=== PATIENT | female | born 1955 | race Caucasian/White ===

== ENCOUNTER → 2016-09-15 | Outpatient (CLI) | payer BC ==
[~2016-09-15] MED LIST: ACET-1256 PO; CALCOIN3; CHOL100010 PO; FLUO20CA35 PO; HYDRELX3 PO; IMD/2 PO; LEVA0.63 INH; LEVO75TA PO; LIDO5DIS10 TD; LPT/40 PO; MODA1TAB PO; MOME50SP5; MONT1TAB3 PO; MULTCHW PO; PSYL55.43 PO; RIZA10TA18 PO; SALI0.6510 NAE; SYMIN/8045 INH; TOPI50TA24 PO; VNTHFA/IN INH; [UNRECOGNIZED DRUG - CODE] EX
== END | disposition home or self-care (01) ==
LOC: C.CPL 10:36
PROVIDERS: ATTEND Psychiatry & Neurology Psychiatry
DX: F33.1 Major depressive disorder, recurrent, moderate (principal); Z79.899 Other long term (current) drug therapy

== ENCOUNTER → 2016-12-21 | Outpatient (CLI) | payer BC ==
[~2016-12-21] MED LIST changes: +AMPH10CA3 PO; +AMPH1TAB58 PO; +BIOTCAP2 PO; +CHOL1TAB42 PO; +HYDR2.5C37 TOP; +LEVA45AE INH; +NF656 TOP; +PRED10TA PO; +RISE150T PO; +TOPI100T20 PO; +XOPENEX NEBULIZER INH
--- NOTE | 2016-12-22 14:10 | MAMMOGRAPHY REPORT ---
BILATERAL DIGITAL SCREENING MAMMOGRAM TOMOSYNTHESIS WITH CAD: 12/21/2016 CLINICAL HISTORY: Routine screening. Patient has no complaints. TECHNIQUE: Breast tomosynthesis in addition to standard 2D mammography was performed. Current study was also evaluated with a Computer Aided Detection (CAD) system. COMPARISON: Comparison is made to exams dated: 12/18/2015 mammogram, 03/07/2013 mammogram, 03/06/2012 mammogram, 03/04/2011 mammogram, 03/03/2010 mammogram - [facility], and 02/26/2009. BREAST COMPOSITION: There are scattered areas of fibroglandular density in both breasts. FINDINGS: The parenchymal pattern is unchanged. No developing mass, architectural distortion or clu ster of suspicious microcalcifications is seen in either breast. IMPRESSION: ACR BI-RADS CATEGORY 2: BENIGN There is no mammographic evidence of malignancy. A 1 year screening mammogram is recommended. The p atient will receive written notification of the results. Approximately 10% of breast cancers are not detected with mammography. A negative mammographic repor t should not delay biopsy if a clinically suggestive mass is present. Manuela Nielsen M.D. ay/:12/21/2016 16:34:32 Java Web Architect: Cheyenne FREIRE([place]aldon[place])(M), [facility] letter sent: Normal 1/2 BI-RADS Code: ACR BI-RADS Category 2: Benign
== END | disposition home or self-care (01) ==
LOC: C.MAMM 09:39
PROVIDERS: ATTEND Obstetrics & Gynecology
DX: Z12.31 Encounter for screening mammogram for malignant neoplasm of breast (principal)

== ENCOUNTER → 2017-04-07 | Outpatient (CLI) | payer BC ==
[~2017-04-07] MED LIST changes: -AMPH10CA3 PO; -AMPH1TAB58 PO; -BIOTCAP2 PO; -CHOL1TAB42 PO; -HYDR2.5C37 TOP; -LEVA45AE INH; -NF656 TOP; -PRED10TA PO; -RISE150T PO; -TOPI100T20 PO; -XOPENEX NEBULIZER INH
[2017-04-07 13:52] LABS: ESTIMATED AVERAGE GLUCOSE 123 mg/dl; HA1C FLAG Normal (Normal)
[2017-04-07 14:06] LABS: CHOLESTEROL/HDL RATIO 4.5; THYROID STIMULATING HORMONE 0.59 uIu/ml (0.300-4.500)
== END | disposition home or self-care (01) ==
LOC: C.LABBC 10:20
PROVIDERS: ATTEND Internal Medicine
DX: E78.5 Hyperlipidemia, unspecified (principal)

== ENCOUNTER → 2017-06-06 | Day surgery (SDC) | payer BC ==
[2017-05-24 13:14] VITALS: Ht 160 cm; Wt 61.4 kg
[~2017-06-06] VITALS: Ht 160 cm; Wt 61.4 kg
[~2017-06-06] MED LIST changes: +AMPH10CA3 PO; +AMPH1TAB58 PO; +BIOTCAP2 PO; -CALCOIN3; -CHOL100010 PO; +CHOL1TAB42 PO; -FLUO20CA35 PO; +HYDR2.5C37 TOP; -LEVA0.63 INH; +LEVA45AE INH; -LIDO5DIS10 TD; +LIDOCAINE HCL 2% 2 ML VIAL (20MG/ML) ONE; -LPT/40 PO; +MIDAZOLAM HCL 1 MG/ML 2ML VIAL ONE; -MODA1TAB PO; -MOME50SP5; +NF656 TOP; +ONDANSETRON INJ 2 MG/ML 2 ML VIAL ONE; +PRED10TA PO; +PROPOFOL IV EMULSION 10 MG/ML 20 ML VIAL IV ONE; -PSYL55.43 PO; +RISE150T PO; +SODIUM CHLORIDE 0.9% 500ML 500 ML IV ONE; +TOPI100T20 PO; -VNTHFA/IN INH; +XOPENEX NEBULIZER INH; -[UNRECOGNIZED DRUG - CODE] EX
--- NOTE | 2017-06-06 14:02 | Endo History and Physical ---
History & Physical Date of Service: Jun 06, 2017. Chief Complaint: HX OF POLYPS Referring Physician: DR. Sandy GOMEZ History of Present Illness 61 yo CF who presents for colonoscopy secondary to history of colon polyps. Past Surgical History Hx Cardiac Surgery: No Hx Internal Defibrillator: No Hx Pacemaker: No Hx Abdominal Surgery: No ( ) Hx of Implantable Prosthesis: No Hx Post-Op Nausea and Vomiting: Yes (N/V WITH LUNG BIOPSY) Hx Cancer Surgery: No Hx Thoracic Surgery: Yes (RIGHT OPEN LUNG BIOPSY-BENIGN; ASPIRATION OF BREAST CYST-BENIGN) Hx Orthopedic: No Hx Urinary Tract Surgery: No Family History IBD Social History Smoking Status: Current Every Day Smoker Hx Substance Use: Yes (LORTAB PRN PAIN) Hx Alcohol Use: Yes (ONCE A WEEK) Allergies Coded Allergies: Adhesives (Verified Allergy, Unknown, BLISTERS AND ITCHING, 05/24/17) Bacitracin (Verified Allergy, Unknown, ITCHING AND BLISTERS, 05/24/17) MAY BE FROM ADHESIVE Neomycin (Verified Allergy, Unknown, ., 05/24/17) Penicillins (Verified Allergy, Unknown, RASH AND ITCHING, 05/24/17) Polymyxin B (Verified Allergy, Unknown, ., 05/24/17) Sulfa Drugs (Verified Allergy, Unknown, RASH AND ITCHING, 05/24/17) Clarithromycin (Verified Adverse Reaction, Unknown, N/V, 05/24/17) Doxycycline (Verified Adverse Reaction, Unknown, N/V, 05/24/17) Current Medications Reported Home Medications Medications Dose Route/Sig Max Daily Dose Days Date Category Dose Instructions Symbicort 80/4.5 Inhaler (Budesonide/Formoterol Fumarate) Aero 1 Puffs INH BID PRN 06/06/17 Reported Prednisone 10 Mg Tab 10 Mg PO TAPER 06/06/17 Reported Lidoderm Patch 5% (Lidocaine) 1 Ea Tdsy 1 Dose TOP DAILY 05/24/17 Reported [Xopenex Nebulizer] 1 Dose INH PRN 05/24/17 Reported 0.63 MG/3 ML Anusol-Hc 2.5% (Hydrocortisone 2.5% (Rectal)) 2.5 % Cre 1 Appln TOP BID PRN 7 05/24/17 Reported Adderall 5MG (Amphetamine-Dextroamphetamine 5MG) 1 Tab Tab 5 Mg PO NOON 05/24/17 Reported Adderall Xr 10MG (Amphetamine-Dextroamphetamine 10MG) 1 Cap Cap 10 Mg PO QAM 05/24/17 Reported Actonel (Risedronate Sodium) 150 Mg Tab 1 Tab PO MONTHLY 90 05/24/17 Reported FIRST OF THE MONTH Biotin 5000 (Biotin) 5 Mg Cap 5 Mg PO QPM 05/24/17 Reported [Lortab] 1 Tab PO PRN 05/24/17 Reported 10-325 MG Topamax (Topiramate) 100 Mg Tab 100 Mg PO HS 05/24/17 Reported Vitamin D (Cholecalciferol) 5,000 Unit Tab 5,000 Units PO QPM 05/24/17 Reported Levalbuterol Tartrate Hfa (Levalbuterol Tartrate) 45 Mcg/Act Aer 2 Puffs INH PRN 05/24/17 Reported Tylenol (Acetaminophen) 500 Mg Tab 1,000 Mg PO Q4 PRN 09/25/13 Reported [place] Nasal [place] (Saline) 0.65 % Spr 1 [place] KWAKU BID PRN 09/25/13 Reported Maxalt (Rizatriptan Benzoate) 10 Mg Tab 10 Mg PO UD 09/25/13 Reported TAKE 1 TABLET AT ONSET OF HEADACHE. MAY REPEAT EVERY 2 HOURS NEEDED. MAXIMUM 3 TABLETS IN 24 HOURS. Imodium (Loperamide HCl) 2 Mg Cap 2-4 Mg PO PRN PRN 09/25/13 Reported Centrum Silver (Multiple Vitamins W/ Minerals) 1 Chw Chw 1 Tab PO HS 09/25/13 Reported Topamax (Topiramate) 50 Mg Tab 50 Mg PO QAM 10/24/12 Reported Singulair (Montelukast Sodium) 10 Mg Tab 10 Mg PO QPM 10/24/12 Reported Synthroid (Levothyroxine Sodium) 75 Mcg Tab 75 Mcg PO QAM 10/24/12 Reported Vital Signs Weight (Kilograms): 61.36 Height (Feet): 5 Height (Inches): 3 Date Time Temp Pulse Resp B/P (MAP) Pulse Ox O2 Delivery O2 Flow Rate FiO2 06/06/17 13:57 36.7 81 16 113/61 (78) 100 Room Air Physical Exam General Appearance: WD/WN, no apparent distress Respiratory/Chest: Auscultation: breath sounds normal Cardiovascular: Heart Auscultation: RRR Abdomen: Bowel Sounds: normal Inspection & Palpation: soft, non-distended, no tenderness, guarding & rebound Assessment and Plan Assessment: 61 yo CF who presents for colonoscopy secondary to history of colon polyps. Plan: Proceed with colonoscopy.
--- NOTE | 2017-06-06 15:17 | Discharge Instructions ---
Endoscopy Patient Instructions Date / Procedure(s) Performed Jun 06, 2017. Colonoscopy Allergy Information Coded Allergies: Bacitracin (Verified Allergy, Intermediate, ITCHING AND BLISTERS, 06/06/17 ) MAY BE FROM ADHESIVE Neomycin (Verified Allergy, Intermediate, ITCHING AND BLISTERS, 06/06/17) MAY BE FROM ADHESIVE Penicillins (Verified Allergy, Intermediate, RASH AND ITCHING, 06/06/17) Polymyxin B (Verified Allergy, Intermediate, ITCHING AND BLISTERS, ) MAY BE FROM ADHESIVE Sulfa Antibiotics (Verified Allergy, Unknown, RASH AND ITCHING, 06/06/17) Adhesives (Verified Adverse Reaction, Intermediate, BLISTERS AND ITCHING, 06/06/17) Clarithromycin (Verified Adverse Reaction, Intermediate, N/V, 06/06/17) Doxycycline (Verified Adverse Reaction, Intermediate, N/V, 06/06/17) Discharge Date / Findings Jun 06, 2017. Colon polyps Diverticulosis Internal hemorrhoids Medication Instructions OK to resume all medications today as prescribed Reported Home Medications Medications Dose Route/Sig Max Daily Dose Days Date Category Dose Instructions Symbicort 80/4.5 Inhaler (Budesonide/Formoterol Fumarate) Aero 1 Puffs INH BID PRN 06/06/17 Reported Prednisone 10 Mg Tab 10 Mg PO TAPER 06/06/17 Reported Lidoderm Patch 5% (Lidocaine) 1 Ea Tdsy 1 Dose TOP DAILY 05/24/17 Reported [Xopenex Nebulizer] 1 Dose INH PRN 05/24/17 Reported 0.63 MG/3 ML Anusol-Hc 2.5% (Hydrocortisone 2.5% (Rectal)) 2.5 % Cre 1 Appln TOP BID PRN 7 05/24/17 Reported Adderall 5MG (Amphetamine-Dextroamphetamine 5MG) 1 Tab Tab 5 Mg PO NOON 05/24/17 Reported Adderall Xr 10MG (Amphetamine-Dextroamphetamine 10MG) 1 Cap Cap 10 Mg PO QAM 05/24/17 Reported Actonel (Risedronate Sodium) 150 Mg Tab 1 Tab PO MONTHLY 90 05/24/17 Reported FIRST OF THE MONTH Biotin 5000 (Biotin) 5 Mg Cap 5 Mg PO QPM 05/24/17 Reported [Lortab] 1 Tab PO PRN 05/24/17 Reported 10-325 MG Topamax (Topiramate) 100 Mg Tab 100 Mg PO HS 05/24/17 Reported Vitamin D (Cholecalciferol) 5,000 Unit Tab 5,000 Units PO QPM 05/24/17 Reported Levalbuterol Tartrate Hfa (Levalbuterol Tartrate) 45 Mcg/Act Aer 2 Puffs INH PRN 05/24/17 Reported Tylenol (Acetaminophen) 500 Mg Tab 1,000 Mg PO Q4 PRN 09/25/13 Reported [place] Nasal [place] (Saline) 0.65 % Spr 1 [place] KWAKU BID PRN 09/25/13 Reported Maxalt (Rizatriptan Benzoate) 10 Mg Tab 10 Mg PO UD 09/25/13 Reported TAKE 1 TABLET AT ONSET OF HEADACHE. MAY REPEAT EVERY 2 HOURS NEEDED. MAXIMUM 3 TABLETS IN 24 HOURS. Imodium (Loperamide HCl) 2 Mg Cap 2-4 Mg PO PRN PRN 09/25/13 Reported Centrum Silver (Multiple Vitamins W/ Minerals) 1 Chw Chw 1 Tab PO HS 09/25/13 Reported Topamax (Topiramate) 50 Mg Tab 50 Mg PO QAM 10/24/12 Reported Singulair (Montelukast Sodium) 10 Mg Tab 10 Mg PO QPM 10/24/12 Reported Synthroid (Levothyroxine Sodium) 75 Mcg Tab 75 Mcg PO QAM 10/24/12 Reported Provider Instructions Activity Restrictions - No exercising or heavy lifting for 24 hours. - Do not drink alcohol the day of the procedure. - Do not drive a car or operate machinery until the day after the procedure. - Do not make any important decisions or sign important papers in 24 hours after the procedure. Following Day: - Return to full activity which may include returning to work/school. Diet Start your diet with liquids and light foods (jello, soup, juice, toast). Then eat your usual diet if not nauseated. Treatment For Common After Affects For mild abdominal pain, bloating, or excessive gas: - Rest - Eat lightly - Lie on right side Follow-Up Information Follow-up with DR. aSndy GOMEZ as scheduled Anesthesia Information What You Should Know You have had a procedure that required some medicine to reduce anxiety and discomfort. This treatment is called moderate sedation. After receiving the treatment, you may be sleepy, but you will be able to breathe on your own. The effects of the treatment may last for several hours. Follow these instructions along with Activity/Diet recommendations noted above: * Do NOT do anything where dizziness or clumsiness would be dangerous. * Rest quietly at home today, then you can be up and about tomorrow. * Have a responsible person stay with you the rest of today. * You may have had an I.V. today. If so, you may take the dressing off later today. Recommendations Call your doctor if: * Trouble breathing * Continuous vomiting for more than 24 hours * Temperature above 101 degrees * Severe abdominal pain or bloating * Pain not relieved by pain medicine ordered * There is increased drainage or redness from any incision * A large amount of rectal bleeding greater than 2-3 tablespoons. (If you had a polyp/s removed or have hemorrhoids, a small amount of blood - from the rectum is to be expected.) * You have any unanswered questions or concerns. IN THE EVENT OF A SERIOUS EMERGENCY, GO TO THE NEAREST EMERGENCY ROOM Your discharge instructions were prepared by provider Hamzah Hannah. Patient Instructions Signature Page Yara Stauffer Patient (or Guardian) Signature/Date: I have read and understand the instructions given to me by my caregivers. Caregiver/RN/Doctor Signature/Date: The above-named patient and/or guardian has received patient instructions on this date. + Original Patient Signature Page (only) stays with chart. Please make copy for patient.
--- NOTE | 2017-06-06 15:20 | GI REPORT ---
Procedure Date: 06/06/2017 2:45 PM Procedure: Colonoscopy Indications: High risk colon cancer surveillance: Personal history of colonic polyps Medicines: Monitored Anesthesia Care Complications: No immediate complications. Estimated Blood Loss: Estimated blood loss: none. Procedure: Pre-Anesthesia Assessment: - Prior to the procedure, a History and Physical was performed, and patient medications and allergies were reviewed. The patient's tolerance of previous anesthesia was also reviewed. The risks and benefits of the procedure and the sedation options and risks were discussed with the patient. All questions were answered, and informed consent was obtained. Prior Anticoagulants: The patient has taken no previous anticoagulant or antiplatelet agents. ASA Grade Assessment: III - A patient with severe systemic disease. After reviewing the risks and benefits, the patient was deemed in satisfactory condition to undergo the procedure. After I obtained informed consent, the scope was passed under direct vision. Throughout the procedure, the patient's blood pressure, pulse, and oxygen saturations were monitored continuously. The scope was introduced through the anus and advanced to the terminal ileum. The colonoscopy was performed without difficulty. The patient tolerated the procedure well. The quality of the bowel preparation was good. The terminal ileum, ileocecal valve, appendiceal orifice, and rectum were photographed. Findings: A 4 mm polyp was found in the sigmoid colon. The polyp was sessile. The polyp was removed with a hot snare. Resection and retrieval were complete. Multiple small-mouthed diverticula were found in the sigmoid colon. Non-bleeding internal hemorrhoids were found during retroflexion. The hemorrhoids were small. Impression: - One 4 mm polyp in the sigmoid colon, removed with a hot snare. Resected and retrieved. - Diverticulosis in the sigmoid colon. - Non-bleeding internal hemorrhoids. Recommendation: - Resume previous diet. - Continue present medications. - Repeat colonoscopy for surveillance based on pathology results. - Return to primary care physician as previously scheduled. Hamzah Hannah, DO 06/06/2017 3:20:13 PM This report has been signed electronically. Note Initiated On: 06/06/2017 2:45 PM I attest to the content of the Intraoperative Record and orders documented therein, exceptions below
[2017-06-06 15:49] VITALS: BP 129/88; PULSE 73; O2SAT 97
--- NOTE | 2017-06-06 16:00 | Anesthesiology Progress Note ---
Anesthesia Post Op Note Date & Time Jun 06, 2017 at 16:00 Vital Signs Pain Intensity: 0 Vital Signs Past 12 Hours Date Time Temp Pulse Resp B/P (MAP) Pulse Ox O2 Delivery O2 Flow Rate FiO2 06/06/17 15:49 73 18 129/88 (102) 97 Room Air 06/06/17 15:34 78 18 121/67 (85) 98 Room Air 06/06/17 15:19 101 16 165/80 (108) 99 Room Air 06/06/17 13:57 36.7 81 16 113/61 (78) 100 Room Air Notes Mental Status: alert / awake / arousable, participated in evaluation Pt Amnestic to Procedure: Yes Nausea / Vomiting: adequately controlled Pain: adequately controlled Airway Patency, RR, SpO2: stable & adequate BP & HR: stable & adequate Hydration State: stable & adequate Anesthetic Complications: no major complications apparent
== END | disposition home or self-care (01) ==
LOC: C.GI 13:25
PROVIDERS: ATTEND Internal Medicine
DX: D12.5 Benign neoplasm of sigmoid colon (principal); K64.8 Other hemorrhoids; K57.30 Diverticulosis of large intestine without perforation or abscess without bleeding; I10 Essential (primary) hypertension; J45.909 Unspecified asthma, uncomplicated; F17.200 Nicotine dependence, unspecified, uncomplicated; Z86.010 Personal history of colon polyps

== ENCOUNTER → 2017-07-06 | Outpatient (CLI) | payer BC ==
[~2017-07-06] MED LIST changes: -LIDOCAINE HCL 2% 2 ML VIAL (20MG/ML) ONE; -MIDAZOLAM HCL 1 MG/ML 2ML VIAL ONE; -ONDANSETRON INJ 2 MG/ML 2 ML VIAL ONE; -PROPOFOL IV EMULSION 10 MG/ML 20 ML VIAL IV ONE; -SODIUM CHLORIDE 0.9% 500ML 500 ML IV ONE
--- NOTE | 2017-07-06 12:00 | DIAGNOSTIC IMAGING REPORT ---
CHEST 2 VIEWS ROUTINE CLINICAL HISTORY: J44.9 Chronic obstructive pulmonary [id number] COMPARISON STUDY: 10/03/2015 FINDINGS: The cardiac and mediastinal contours remain stable. There is no focal pulmonary consolidation. There is a 6 mm right lower lung zone pulmonary nodule. This measured 5 mm in August 2012. The very slow growth strongly favors a benign process. There are minor basilar atelectatic changes.[ IMPRESSION: 1. 6 mm of right lower lung zone pulmonary nodule. In all likelihood this is benign 2. Minor basilar atelectasis Electronically signed by: Jay Beauchamp M.D. 07/06/2017 11:58 AM Dictated Date/Time: 07/06/2017 11:57 AM
== END | disposition home or self-care (01) ==
LOC: C.RAD1850 11:43
PROVIDERS: ATTEND Physician Assistant
DX: J44.9 Chronic obstructive pulmonary disease, unspecified (principal); R05 Cough; R91.1 Solitary pulmonary nodule; J98.11 Atelectasis

== ENCOUNTER → 2017-07-13 | Outpatient (CLI) | payer BC | END | disposition home or self-care (01) | LOC: C.PAPS 11:51 | PROVIDERS: ATTEND Obstetrics & Gynecology | DX: Z01.419 Encounter for gynecological examination (general) (routine) without abnormal findings (principal) ==

== ENCOUNTER → 2017-08-19 | Outpatient (CLI) | payer BC | END | disposition home or self-care (01) | LOC: C.LABBC 10:55 | PROVIDERS: ATTEND Internal Medicine | DX: E03.9 Hypothyroidism, unspecified (principal) ==

== ENCOUNTER → 2017-09-14 | Outpatient (CLI) | payer BC | END | disposition home or self-care (01) | LOC: C.CPL 11:24 | PROVIDERS: ATTEND Psychiatry & Neurology Psychiatry | DX: Z79.899 Other long term (current) drug therapy (principal) ==

== ENCOUNTER → 2018-03-07 | Outpatient (CLI) | payer BC ==
[2018-03-07 13:06] LABS: BASO % 0.9 %; BASO ABS # 0.07 K/uL (0-0.2); EOS % 2.7 %; EOS ABS # 0.22 K/uL (0-0.5); HEMATOCRIT 44.5 % (37-47); HEMOGLOBIN 14.5 g/dL (12.0-16.0); IG# 0.02 K/uL (0.00-0.02); LYMPH % 37.4 %; LYMPH ABS # 3.03 K/uL (1.2-3.4); MEAN CELL VOLUME 93.3 fL (80-100); MEAN CORPUSCULAR HEMOGLOBIN 30.4 pg (25-34); MEAN CORPUSCULAR HGB CONC 32.6 g/dl (32-36); MEAN PLATELET VOLUME 9.6 fL (7.4-10.4); MONO % 9.4 %; MONO ABS # 0.76 K/uL (0.11-0.59); NEUT % 49.4 %; NEUT ABS # 4.01 K/uL (1.4-6.5); PLATELET COUNT 301 K/uL (130-400); RED CELL DISTRIBUTION WIDTH CV 14.7 % (11.5-14.5); RED CELL DISTRIBUTION WIDTH SD 50.6 fL (36.4-46.3); WHITE BLOOD COUNT 8.11 K/uL (4.8-10.8)
[2018-03-07 14:37] LABS: ALBUMIN 3.7 gm/dl (3.4-5.0); ALKALINE PHOSPHATASE 48 U/L (45-117); ALT/SGPT 15 U/L (12-78); AST/SGOT 12 U/L (15-37); BLOOD UREA NITROGEN 13 mg/dl (7-18); CALCIUM 8.3 mg/dl (8.5-10.1); CARBON DIOXIDE 24 mmol/L (21-32); CHOLESTEROL 200 mg/dl (0-200); GLUCOSE 100 mg/dl (70-99); LDL CHOLESTEROL CALCULATED 116 mg/dl; POTASSIUM 3.6 mmol/L (3.5-5.1); SODIUM 140 mmol/L (136-145)
== END | disposition home or self-care (01) ==
LOC: C.LABBC 10:50
PROVIDERS: ATTEND Internal Medicine
DX: J45.909 Unspecified asthma, uncomplicated (principal); M81.0 Age-related osteoporosis without current pathological fracture; R05 Cough; E78.5 Hyperlipidemia, unspecified; E03.9 Hypothyroidism, unspecified; J44.9 Chronic obstructive pulmonary disease, unspecified; R03.0 Elevated blood-pressure reading, without diagnosis of hypertension; M79.7 Fibromyalgia

== ENCOUNTER → 2018-03-08 | Outpatient (CLI) | payer BC ==
--- NOTE | 2018-03-08 13:33 | DIAGNOSTIC IMAGING REPORT ---
R HIP UNILATERAL 2 VIEWS CLINICAL HISTORY: 62 years-old Female presenting with M25.559 Chronic hip pain, unspecified laterality both [id number]. TECHNIQUE: Frontal and frog-leg lateral views of the right hip were obtained. COMPARISON: None. FINDINGS: Right hip joint congruent. No joint space loss. Right No osteophytosis. Right femoral neck intact. Visualized portion of the bony pelvis intact. No acute fracture or malalignment. No advanced degenerative change. No radiographic soft tissue abnormality. IMPRESSION: No acute osseous injury or advanced degenerative change. Electronically signed by: Iban Deshpande M.D. 03/08/2018 1:32 PM Dictated Date/Time: 03/08/2018 1:32 PM
--- NOTE | 2018-03-08 13:38 | DIAGNOSTIC IMAGING REPORT ---
LUMBAR SPINE 7 VIEWS with flexion and extension HISTORY: M25.559 Chronic hip pain, unspecified [id number] COMPARISON: None. FINDINGS: There is no fracture. No subluxation. Disc spaces are preserved. Alignment is intact throughout flexion and extension. Mild facet degenerative changes within the lower lumbar spine. IMPRESSION: No fracture or subluxation within the lumbar spine. Alignment remains intact throughout flexion and extension. Electronically signed by: Aleks Pham M.D. 03/08/2018 1:37 PM Dictated Date/Time: 03/08/2018 1:34 PM
--- NOTE | 2018-03-08 13:41 | DIAGNOSTIC IMAGING REPORT ---
L HIP UNILATERAL 2 VIEWS CLINICAL HISTORY: M25.559 Chronic hip pain, unspecified [id number] COMPARISON: None. DISCUSSION: Mild degenerative narrowing left hip joint space. No evidence for acetabular protrusion. No abnormal soft tissue calcifications. There is no evidence for soft tissue swelling. IMPRESSION: Mild degenerative change. No acute process. The above report was generated using voice recognition software. It may contain grammatical, syntax or spelling errors. Electronically signed by: Lang Shahid M.D. 03/08/2018 1:39 PM Dictated Date/Time: 03/08/2018 1:31 PM
== END | disposition home or self-care (01) ==
LOC: C.RADBC 12:58
PROVIDERS: ATTEND Internal Medicine
DX: M25.559 Pain in unspecified hip (principal)

== ENCOUNTER → 2018-03-15 | Outpatient (CLI) | payer BC ==
--- NOTE | 2018-03-15 17:38 | DIAGNOSTIC IMAGING REPORT ---
MRI OF THE LUMBAR SPINE WITHOUT IV CONTRAST CLINICAL HISTORY: Chronic hip pain. Lower extremity radiculopathy. COMPARISON STUDY: No priors. TECHNIQUE: MRI of the lumbar spine is performed utilizing various T1 and T2-weighted sequences in the axial and sagittal planes. IV contrast was not administered for this examination. FINDINGS: Lumbar spine: Vertebral body height and alignment are maintained throughout the lumbar spine. Marrow signal intensity is heterogeneous. The transverse and spinous processes are intact. There is no evidence of spondylolysis. A small hemangioma is noted in the left pedicle of L2. No destructive bony lesion is identified. Tiny anterior osteophytes are seen in the lower lumbar spine. Mild hyperlordosis is observed. Intervertebral discs: Mild degenerative disc desiccation is seen in the lower lumbar region. The disc spaces are maintained. Spinal cord: The partially imaged spinal cord is normal in morphology and signal intensity. The conus medullaris terminates at the T12-L1 disc space. The nerve roots of the cauda equina are normal in morphology. L1-L2: Unremarkable. L2-L3: Unremarkable. L3-L4: There is minimal posterior disc bulge. No significant acquired compromise of the central canal is identified. There is mild bilateral subarticular stenosis. The neural foramina are patent. The disc bulge may abut the transiting bilateral L4 nerve roots. L4-L5: There is broad-based posterior disc bulge with annular fissure. In conjunction with hypertrophy of the ligamentum flavum, there is [id number] central canal stenosis at this level with a minimum AP diameter of 7 mm. There is bilateral subarticular stenosis. The disc bulge may abut the exiting bilateral L4 and the transiting bilateral L5 nerve roots. Mild facet arthropathy causes minimal left neural foraminal stenosis. L5-S1: There is minimal posterior disc bulge. No significant acquired compromise of the central canal is identified. The neural foramina are patent. Sacrum: The visualized sacrum is normal in morphology and signal intensity. A Tarlov cyst is identified on the right at the level of S2 and measures 1.6 cm. Soft tissues: The paraspinous soft tissues are normal in appearance. A subcentimeter cyst is partially visualized in the right kidney. The retroperitoneal structures are otherwise grossly unremarkable but incompletely assessed. IMPRESSION: 1. A broad-based posterior disc bulge at L4-L5 causes [id number]-[id number] central canal stenosis. 2. Mild spondylotic change at additional levels as detailed above. See discussion for detailed level by level analysis. 3. No destructive bony process is identified. Dictated: 03/15/2018 4:45 PM Transcribed: 03/15/2018 5:37 PM JOSE [facility] Electronically signed by: Clement Henriquez M.D. 03/15/2018 5:46 PM Dictated Date/Time: 03/15/2018 4:45 PM
== END | disposition home or self-care (01) ==
LOC: C.MRIBC 15:58
PROVIDERS: ATTEND Internal Medicine
DX: M25.559 Pain in unspecified hip (principal); M51.26 Other intervertebral disc displacement, lumbar region; M48.061 Spinal stenosis, lumbar region without neurogenic claudication